=== PATIENT | female | born 1990 | race Caucasian/White ===

== ENCOUNTER 2019-01-07 00:58 | Outpatient (CLI) | payer MEDICAID, SELFPAY ==
--- NOTE | 2019-01-07 12:54 | DI.US_ITS ---
SYMPTOMS/DIAGNOSIS: F/U THYROID NODULE, E04.1 THYROID ULTRASOUND: No prior comparison exams are available. There is a 5 mm circumscribed nodule in the mid to lower right lobe of the thyroid. There is a 6 mm smoothly marginated hypoechoic nodule to the right side of the isthmus. An additional circumscribed 8 x 4 x 4 mm nodule is seen at the lower pole of the left lobe of the thyroid. No suspicious nodules are identified. IMPRESSION: Small benign-appearing thyroid nodules.
[2019-01-07 14:05] LABS: HCT 43.7 % (36.0-46.0); HGB 14.5 g/dL (12.0-15.5); Mean Corp. HGB Concentration 33.2 g/dL (32.0-36.0); Mean Corpuscular Volume 90.3 fL (80-95); Mean Platelet Volume 9.9 fL (8.0-11.0); Platelet Count 290 x1000/uL (130-400); RBC 4.84 m/cumm (4.00-5.20); RBC Distribution Width 13.4 % (11.7-14.6); White Blood Cell Count 11.58 k/cumm (4.4-10.8)
[2019-01-07 14:49] LABS: ESR 13 MM/HR (0-20)
[2019-01-07 15:41] LABS: ALT 27 U/L (12-78); AST 18 U/L (15-37); Albumin 4.2 g/dL (3.4-5.0); Alkaline Phosphatase 56 U/L (46-116); Anion Gap 8.7 mmol/L (3-11); BUN 16 mg/dL (7-18); Bilirubin, Total 0.1 mg/dL (0.2-1.0); C-Reactive Protein 0.14 mg/dL (0.0-0.3); CO2 28.3 mmol/L (21.0-32.0); CREATININE 0.68 mg/dL (0.55-1.02); Calcium 9.5 mg/dL (8.5-10.1); Chloride 102 mmol/L (98-107); Glucose 82 mg/dL (70-100); Potassium 4.3 mmol/L (3.5-5.1); Sodium 139 mmol/L (136-145); TSH (W/Ref FT4) 2.15 uIU/mL (0.358-3.74); Total Protein 7.6 g/dL (6.4-8.2)
[2019-01-08 11:13] LABS: Lyme Ab w Rflx to Lyme Confirm Negative
[2019-01-08 15:06] LABS: ANA Interpretation Negative (NEGAT)
[2019-01-09 10:36] LABS: Rheumatoid Factor 11 IU/mL (<12.5)
== END 2019-01-07 01:18 ==
PROVIDERS: PCP Nurse Practitioner; Visit Provider Nurse Practitioner
DX: E04.1 Nontoxic single thyroid nodule (principal); R53.83 Other fatigue; T14.8XXA Other injury of unspecified body region, initial encounter; W57.XXXA Bitten or stung by nonvenomous insect and other nonvenomous arthropods, initial encounter; F41.9 Anxiety disorder, unspecified; G43.909 Migraine, unspecified, not intractable, without status migrainosus; Z72.0 Tobacco use
CPT/HCPCS: 36415; 80053; 85027; 85652; 76536; 84443; 86038; 86140; 86431; 86618

== ENCOUNTER 2019-03-31 15:33 | Outpatient (CLI) | payer MEDICAID, SELFPAY ==
--- NOTE | 2019-03-31 12:50 | DI.RAD_ITS ---
SYMPTOMS/DIAGNOSIS: ANTERIOR CHEST PAIN, TOBACCO USE, PALPITATIONS, Z72.0, R07.9, R00.2 CHEST X-RAY, PA AND LATERAL: No priors. The heart is normal in size. The lungs are clear. The mediastinal structures and pleura appear intact. IMPRESSION: Normal chest.
== END 2019-03-31 15:53 ==
PROVIDERS: PCP Nurse Practitioner; Visit Provider Nurse Practitioner
DX: R07.9 Chest pain, unspecified (principal); R00.2 Palpitations; Z72.0 Tobacco use
CPT/HCPCS: 71046

== ENCOUNTER 2021-01-02 04:31 | Outpatient (CLI) | payer MEDICAID, SELFPAY ==
[2021-01-02 13:52] LABS: ESR 13 mm/hr (0-20)
[2021-01-02 14:42] LABS: Vitamin D 25 Total 26.4 ng/ml (30-100)
[2021-01-02 14:50] LABS: C-Reactive Protein 0.07 mg/dL (0.0-0.3); TSH (W/Ref FT4) 1.93 uIU/mL (0.36-3.74); Vitamin B12 738 pg/mL (193-986)
[2021-01-02 15:06] LABS: Creatine Kinase 87 U/L (26-192)
[2021-01-02 22:39] LABS: Rheumatoid Factor <8.6 IU/mL (<12.0)
[2021-01-03 15:31] LABS: ANA Interpretation Negative (Negative)
== END 2021-01-02 04:51 ==
PROVIDERS: PCP Nurse Practitioner; Visit Provider Nurse Practitioner Adult Health
DX: R53.83 Other fatigue (principal); R20.2 Paresthesia of skin; M79.18 Myalgia, other site; M25.59 Pain in other specified joint
CPT/HCPCS: 36415; 82306; 82550; 85652; 82607; 84443; 86038; 86140; 86431

== ENCOUNTER 2021-02-22 02:41 | Outpatient (CLI) | payer MEDICAID, SELFPAY ==
--- NOTE | 2021-02-22 | DI.MRI_ITS ---
EXAM: MR ANGIO BRAIN WO CLINICAL HISTORY: PULSATILE TINNITUS,H93.A9 TECHNIQUE: Brain MRA performed with [id number] technique. Field of view is from the skull base up to above the level of the [id number].. COMPARISON: Brain MRI performed today was reviewed FINDINGS: CEREBRAL PARENCHYMA: See separate MRI dictation. However, please note that there is cerebellar tonsi llar ectopia consistent with element of carry 1 malformation. MRI of the cervical spine is recommend ed to determine if there is abnormal finding in the cervical cord. ANTERIOR CIRCULATION: Both internal carotid arteries are shown to be patent the skull base-carotid canals as well as within the cavernous sinuses. Supraclinoid aspects of the internal carotid arteries are patent and nonaneu rysmal. Both middle cerebral arteries are patent demonstrated to be patent out to the sylvian fissur e branches. There no aneurysms in these vessels. Both A1 segments are patent as are the anterior ce rebral arteries. There is no obvious aneurysm at the level of the anterior communicating artery. POSTERIOR CIRCULATION: At the skull base the basilar artery is formed by the dominant right vertebral artery. The left vertebral artery terminates as the left posterior inferior cerebellar artery. The basilar artery is sends in the midline with normal luminal diameter and no intraluminal thrombus. D istally it gives off both superior cerebellar arteries and above this level terminates as patent bila teral posterior cerebral arteries. There is a very thin posterior communicating artery evident on th e right side of the [id number]-[id number]. Slightly thicker caliber posterior communicating artery seen o n the left side of the vseqgi-wb-[id number]. There is no evidence of aneurysm at the tip of the basilar artery. IMPRESSION: Patent intracranial arteries as described above. No intraluminal thrombus evident. No obvious aneurysms. Right vertebral artery is dominant. The left vertebral artery terminates as the left posterior infer ior cerebellar artery. DATA REPOSITORY:
--- NOTE | 2021-02-22 | DI.MRI_ITS ---
EXAM: MR IAC BRAIN WO/W CLINICAL HISTORY: PULSATILE TINNITIS, H93.A9 TECHNIQUE: Multiplanar multisequence MRI of the brain was performed. IAC sequences performed withou t and with IV contrast. Also performed high-resolution sub millimeters slice sequence the internal a uditory canals both noninfused and contrast infused sequences were performed. IV Contrast injected was 13 cc Dotarem. COMPARISON: No exams were available for comparison FINDINGS: CEREBRAL PARENCHYMA: No evidence of intracranial hemorrhage, mass effect nor shift of midline structu re. No extraaxial fluid collections. Ventricles are not enlarged nor shifted. There is no significant focal signal abnormality in the cerebellar hemispheres nor within the bryon, m idbrain, and thalami. There is no abnormal signal abnormality in the periventricular white matter. There are no demyelinat ion plaques evident in white matter. There is no abnormal signal on diffusion imaging. There is cerebellar tonsillar ectopia noted. INTERNAL AUDITORY CANALS: There are no masses in the cerebellopontine angles. No enhancing lesions a t this level nor within the internal auditory canals. Seventh and 8th nerves within the internal aud itory canals appear unremarkable. There are no ring enhancing lesions in the brain. There is no abnormal meningeal enhancement. PITUITARY GLAND: Visualized pituitary gland is not enlarged. No obvious abnormality of the cavernous sinuses. FLOW VOIDS: The expected flow void are noted. No evidence of obvious aneurysm nor obvious vascular ma lformation. PARANASAL SINUSES: There is mucosal thickening and bilateral retention cysts in both maxillary sinuse s. In addition, there is signal abnormality within right-sided mastoid air cells. ORBITS: No obvious abnormal findings. IMPRESSION: 1. No masses in the cerebellopontine angles. Also no evidence of intra canalicular acoustic neuroma- 1 Florencia. 2. No abnormal enhancing intracranial finding. No evidence of demyelinating plaques. 3. 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 As next step recommend cervical spine MRI to ensure that there is no abnormal signal nor syrinx withi n the cervical spinal cord. DATA REPOSITORY:
--- NOTE | 2021-02-22 | DI.MRI_ITS ---
EXAM: MR ANGIO NECK WO CLINICAL HISTORY: PULSATILE TINNITUS, H93.A9 TECHNIQUE: Noninfused MRA performed on 1.5 jesse unit with flight technique COMPARISON: FINDINGS: The aortic arch anatomy is conventional. There is no obvious tight stenosis at the origin of the gre at vessels off the aortic arch. Anterior circulation: Both common carotid arteries ascend with normal luminal diameters. There is no significant plaque-na rrowing at the level the carotid bulbs and proximal internal carotid arteries both internal carotid a rteries are non stenotic at their origins nor above this level in the neck. External carotid arterie s are patent. Both internal carotid arteries are demonstrated to be nicely patent in the upper neck as well as in the skull base-carotid canals. There is no evidence of aneurysm of the internal caroti d arteries in the skull base. Posterior circulation: Both vertebral arteries originate in conventional fashion off of the subclavian arteries. There is n o obvious tight subclavian stenosis proximal to the vertebral artery takeoff points. The right verte bral artery is dominant in the foramen transversarium where it exhibits a luminal diameter of 5 monica meters. No intraluminal thrombus nor dissection. The left vertebral artery is sends with luminal di ameter of 2.5 millimeters, also without evidence of intraluminal thrombus nor dissection. At the u ll base of the dominant right vertebral artery forms the basilar artery. The basilar artery ascends in the midline with normal luminal diameter. Distally it terminates as patent posterior cerebral art eries. The left vertebral artery terminates as the left posterior inferior cerebellar artery. IMPRESSION: Patent extracranial carotid and vertebral arteries in the neck. The right vertebral artery is domina nt and forms the basilar artery. The non dominant left vertebral artery terminates as the left poste rior inferior cerebral artery at the skull base. No aneurysms evident in the field of view of this study. No intraluminal thrombus. No dissection. DATA REPOSITORY:
[2021-02-22] MEDS: Normal Saline Flush 10 ML SYR IVP (14:51)
[2021-02-22] MEDS: Gadoterate meglumine 20 ML VIAL 13 ML IVP (14:52)
== END 2021-02-22 03:01 ==
PROVIDERS: PCP Nurse Practitioner; Visit Provider Otolaryngology Otolaryngology/Facial Plastic Surgery
DX: R94.02 Abnormal brain scan; H93.11 Tinnitus, right ear; H93.A1 Pulsatile tinnitus, right ear; H93.293 Other abnormal auditory perceptions, bilateral; M26.603 Bilateral temporomandibular joint disorder, unspecified
CPT/HCPCS: 70544; 70547; 70553

== ENCOUNTER 2021-04-10 02:29 | Outpatient (CLI) | payer MEDICAID, SELFPAY ==
--- NOTE | 2021-04-10 16:00 | DI.MRI_ITS ---
Exam(s) MR CERVICAL SPINE WO EXAM: MR CERVICAL SPINE WO CLINICAL HISTORY: CHIARI MALFORMATION,G93.5,HEADACHE,R51.9,CHRONIC PAIN,G89.29 TECHNIQUE: Multiplanar multisequence MRI of the cervical spine was performed without intravenous con trast. COMPARISON: MR MR ANGIO BRAIN WO from 02/22/2021 FINDINGS: CERVICOMEDULLARY JUNCTION: There is indeed cerebellar tonsillar ectopia, consistent with Chiari 1 mal formation, as described on the recent brain MRI study. There is, however, no evidence of focal swell ing nor atrophy nor syrinx within the cervical spinal cord OSSEOUS:There are no cervical fractures evident. No significant osseous lesions in the cervical vert ebrae. Cervical curvature is maintained. INDIVIDUAL LEVELS: C2-3: No disc herniation nor central canal stenosis. No foraminal stenosis. No facet arthropathy. C3-4: No disc herniation nor central canal stenosis.No facet arthropathy. No foraminal stenosis. C4-5: No disc herniation nor central canal stenosis.No facet arthropathy. No foraminal stenosis C5-6: Normal disc height and signal. No disc herniation or canal stenosis. No foraminal stenosis. No facet arthropathy. C6-7: Normal disc height and signal. No disc herniation or canal stenosis. No foraminal stenosis. No facet arthropathy. C7-T1: No disc herniation nor central canal stenosis. No facet arthropathy.No foraminal stenosis. IMPRESSION: 1. There is cerebellar tonsillar ectopia, consistent with Chiari 1 malformation. However, there is n o abnormal finding in the cervical spinal cord. 2. No evidence of cervical disc disease, spinal canal stenosis, nor foraminal stenosis in the cervica l spinal column. 3. No abnormal straightening nor reversal of the cervical curvature. DATA REPOSITORY:
== END 2021-04-10 02:49 ==
PROVIDERS: PCP Nurse Practitioner; Visit Provider Physician Assistant
DX: G93.5 Compression of brain (principal); R51.9 Headache, unspecified; G89.29 Other chronic pain
CPT/HCPCS: 72141

== ENCOUNTER 2021-04-13 01:27 | Outpatient (CLI) | payer MEDICAID, SELFPAY ==
--- NOTE | 2021-04-13 07:30 | DI.RAD_ITS ---
Exam(s) XR SACRUM EXAM: XR SACRUM CLINICAL HISTORY: LUMBAR AND SACRAL PAIN, M54.5,M53.3. TECHNIQUE: 2D digital imaging was performed. COMPARISON: No exams were available for comparison FINDINGS: No radiographic abnormality seen in the sacrum and sacroiliac joints. Visualized hips appear unremar kable. Bone density is normal. There is no evidence of sacralization of the L5 segment. IMPRESSION: DATA REPOSITORY: RADIATION DOSE DELIVERED:
--- NOTE | 2021-04-13 07:30 | DI.RAD_ITS ---
Exam(s) XR LUMBAR SPINE COMPLETE EXAM: XR LUMBAR SPINE COMPLETE CLINICAL HISTORY: LUMBAR AND SACRAL PAIN, M54.5,M53.3. TECHNIQUE: 2D digital imaging was performed. COMPARISON: No exams were available for comparison FINDINGS: No evidence of fracture nor listhesis. No obvious pars defects evident. No scoliosis. No disc spac e narrowing evident. Six no osseous lesions. Sacroiliac joints appear unremarkable cysts. Facet ricky ints appear unremarkable. No facet arthropathy. IMPRESSION: DATA REPOSITORY: RADIATION DOSE DELIVERED:
== END 2021-04-13 01:47 ==
PROVIDERS: PCP Nurse Practitioner; Visit Provider Nurse Practitioner
DX: M54.5 Low back pain (principal); M53.3 Sacrococcygeal disorders, not elsewhere classified
CPT/HCPCS: 72110; 72220

== ENCOUNTER 2021-05-29 12:15 | Outpatient (RCR) | payer MEDICAID, SELFPAY ==
--- NOTE | 2021-05-29 13:00 | HOLTER_ITS ---
APPROVED REPORT Conclusion This is a 48-hour monitor ordered for indication of dizziness. The patient was in normal sinus rhythm with majority recording with an average heart rate of 94 bpm. There were 0 episodes of ventricular tachycardia and 0 episodes of supraventricular tachycardia. There were rare PACs/PVCs. There were no episodes of atrial fibrillation, no pauses greater than 3 seconds and no evidence of hi gh degree heart block. There were 8 patient triggered events most of which were associated with chest pressure or dizziness. 2 of these episodes were associated with a single PVC and the rest with normal sinus rhythm
== END 2021-05-31 23:59 | disposition home or self-care (01) ==
LOC: RT 12:15
PROVIDERS: PCP Nurse Practitioner; Visit Provider Nurse Practitioner
DX: R42 Dizziness and giddiness (principal); R00.2 Palpitations; I49.3 Ventricular premature depolarization
CPT/HCPCS: 93225; 93226

== ENCOUNTER 2021-07-04 02:44 | Outpatient (CLI) | payer MEDICAID, SELFPAY ==
--- NOTE | 2021-07-04 08:45 | DI.US_ITS ---
Exam(s) US THYROID EXAM: US THYROID CLINICAL HISTORY: f/u thyroid nodule,e04.1 TECHNIQUE: Ultrasound performed using standard protocol. COMPARISON: US US thyroid from 01/07/2019 FINDINGS: Thyroid ultrasound was performed according to the usual protocol. Right thyroid lobe measures 54 x 20 x 19 millimeters, left lobe measures 50 x 16 x 14 millimeters. T he isthmus is about 5 millimeters in thickness. No abnormal lymph nodes are identified in the cervical region. There is a 5 millimeter in diameter right mid pole thyroid nodule, this is solid and hypoechoic, wide r than tall, and has ill-defined margins with punctate echogenic foci noted. This is a TR 5 nodule b y the TI-RADS classification, follow-up ultrasound recommended in 12 months. There is also a 7 millimeter in diameter right midpole Dari isthmus nodule, this is hypoechoic and so lid, wider than tall, and has ill-defined margins and contains punctate echogenic foci. This is also a TR 5 lesion by TI-RADS classification, follow-up ultrasound recommended in 12 months. No other significant findings. IMPRESSION: Two small nodules are identified in the right thyroid lobe which are TR 5 lesions by TI-RADS classifi cation. Follow-up ultrasound suggested in 12 months. DATA REPOSITORY:
--- NOTE | 2021-07-04 13:50 | DI.US_ITS ---
APPROVED REPORT EXAM: Comprehensive 2D, Doppler, and color-flow Echocardiogram Patient Location: Out-Patient Securities Broker: Millie Guillory RDCS (AE) Indications: Palpitations, Lightheadedness, Dizziness Other Information Study Quality: Good Conclusion Left Ventricle : The left ventricle is normal size. The left ventricular ejection fraction is within the normal range. There is normal left ventricular wall thickness. There is normal LV segmental wall motion. The left ventricular diastolic function is normal. LVEF is 65%. Right Ventricle : The right ventricle is normal size. The right ventricular systolic function is norm al. The RVSP is 23 mmHg. Atria : The left atrium size is normal. The right atrium size is normal. Aortic Valve : The aortic valve is normal in structure. Aortic valve is trileaflet. Mild aortic regur gitation. There is no aortic valvular stenosis. Great Vessels : The aortic root is normal in size. The ascending aorta is normal in size. Aortic arch is normal in caliber. IVC is normal in size and collapses >50% with inspiration. Please see remainder of findings for further details. Wall motion Left Ventricle The left ventricle is normal size. The left ventricular ejection fraction is within the normal range. There is normal left ventricular wall thickness. There is normal LV segmental wall motion. The left ventricular diastolic function is normal. There is no ventricular septal defect visualized. LVEF is 6 5%. Right Ventricle The right ventricle is normal size. The right ventricular systolic function is normal. The RVSP is 23 .3 mmHg. Atria The left atrium size is normal. The right atrium size is normal. The interatrial septum is intact wit h no evidence for an atrial septal defect. Aortic Valve The aortic valve is normal in structure. Aortic valve is trileaflet. There is no aortic valvular sten osis. Mild aortic regurgitation. Mitral Valve The mitral valve is normal in structure. No evidence of mitral valve stenosis. Trace mitral regurgita tion. Tricuspid Valve The tricuspid valve is normal in structure. There is no tricuspid valve stenosis. Trace tricuspid reg urgitation. Pulmonic Valve The pulmonary valve is normal in structure. There is no pulmonic valvular stenosis. There is no pulmo mary valvular regurgitation. Great Vessels The aortic root is normal in size. The ascending aorta is normal in size. Aortic arch is normal in ca liber. IVC is normal in size and collapses >50% with inspiration. Pericardium There is no pericardial effusion. 2D Dimensions IVSD d PLAX 0.78 cm F: 0.6-1.0 LV Vol A2C d MOD 86.4 mL LVPW d PLAX 0.77 cm F: 0.6 - 1.0 LV Vol A4C d MOD 88.1 mL LVID d PLAX 4.52 cm F: 3.8 - 5.2 LA vol/ BSA A2C s A-L 19.6 mL/m2 LVDs 2.95 cm F: 2.2 - 3.5 LA vol/ BSA A4C s A-L 15.6 mL/m2 Ao Root d 2.37 cm F: 2.7 - 3.3 LA Vol/ BSA Biplane s A-L 18.5 mL/m2 RA Area A4C 6.86 cm2 LA Area A4C s MOD 12.24 cm2 RA Vol/ BSA A4C s A-L 7.5 mL/m2 LA Area A2C s MOD 12.93 cm2 Ao Asc Diam d 3.26 cm F: 2.3 - 3.1 LV EF A4C MOD 66.5 % LV EF Teichholz 62.9 % LV EF A2C MOD 65.9 % LVEF (Black's) 66.45 % F: 54 - 74 LV EF Biplane MOD 66.4 % LV Volume 70.36 mL F: 46 - 106 SV 59.35 mL LV Volume Index 40.67 mL/m2 F: 29 - 61 SV Index 34.16 mL/m2 LV Vol Biplane MOD 89.3 mL FS 33.85 % M-Mode TAPSE 2.35 cm (M/F) >1.7 LV Diastology MV E' medial 0.122 (>0.07 m/s) E/A Ratio 1.3 LV E/e MED 7.05 (<14) MV E Vmax 0.86 (0.4-1.3 m/s) MV E' lateral 0.160 (>0.1 m/s) MV A Vmax 0.65 (0.4-1.3 m/s) LV E/e LAT 5.35 (<14) MV E/A Ratio 1.32 MV E/E' medial 7.06 MV E/E' lateral 5.39 Aortic Valve LVOT Area 2.97 cm2 AoV Area Vmax 2.25 cm2 LVOT Vmax 1.00 m/s AoV Area/ BSA (Vmax) 1.30 cm2/m2 LVOT Mean Volodymyr. 0.68 m/s DANIELLE Mean Volodymyr. 2.15 cm2 LVOT Peak Grad 4.0 mmHg DANIELLE Mean Volodymyr. Index 1.24 cm2/m2 LVOT Mean Grad 2.1 mmHg AR DT 1644 msec LVOT VTI 0.208 m AR PHT 477 msec LVOT Diam s 1.90 cm AoV Vmax 1.32 m/s Velocity Ratio 0.75 AoV Mean Volodymyr. 0.94 m/s AoV Peak Grad 7.0 mmHg LVOT SV 61.90 mL AoV Mean Grad 3.8 mmHg AoV VTI 0.260 m AoV Area VTI 2.38 cm2 AoV Area/ BSA (VTI) 1.37 cm/m2 Mitral Valve MV DT 166 (160-240 msec) MV PHT 48 msec MV Area PHT 4.58 cm2 MV VTI 0.261 m MV Area VTI 2.38 (4.0-6.0 cm2) Pulmonary Valve PV Vmax 0.84 (0.5-1.5 m/s) RVOT Peak Gr. 1.67 mmHg PV Peak Grad 2.8 mmHg RVOT Mean Gr. 0.80 mmHg PV Mean Grad 1.7 mmHg RVOT VTI 0.137 m PV VTI 0.176 m RVOT Vmax 0.65 m/s Tricuspid Valve TR Peak Grad 20.3 mmHg TR Vmax 2.26 m/s RA Pressure 3.00 mmHg RVSP (TR) 23.3 mmHg
== END 2021-07-04 03:04 ==
PROVIDERS: PCP Nurse Practitioner; Visit Provider Nurse Practitioner
DX: E04.1 Nontoxic single thyroid nodule (principal); R00.2 Palpitations; R42 Dizziness and giddiness; I35.1 Nonrheumatic aortic (valve) insufficiency
CPT/HCPCS: 76536; 93306

== ENCOUNTER 2022-01-16 13:09 | Outpatient (REF) | payer MEDICAID, SELFPAY ==
--- NOTE | 2022-01-16 11:45 | PAPFT_PTH ---
PATIENT: Jillian Scales LOC: [facility]#:[id number] AGE/SX: 31/F ROOM: RE01/16/[address]: Caroline Gomez NP : 1990 BED: DIS: 01/16/2022 SPEC #: [id number] RECD: 01/16/22 16:23 STATUS: RITIKA REArturo #: [id number] NAKIA: 01/16/22 11:[address]: Caroline Gomez NP DEPT: PENDING SALE TO [facility] Cytology RECD BY: Mary Chan ENTERED: 01/16/22 16:23 SP TYPE: PAPFT OTHR DR: Isbael Reza APRN Tissues: 1 - CX/ENDOCX FOR PAP SMEARS Procedures: PAP THIN PREP/[facility] Screening HPV DNA PROBE Comments: [id number] (CHLAMYDIA/GC)
[2022-01-17 15:34] LABS: Chlamydia Result Negative (Negative); GC Result Negative (Negative)
== END 2022-01-16 13:10 | disposition home or self-care (01) ==
LOC: LBN 13:09
PROVIDERS: PCP Nurse Practitioner; Visit Provider Nurse Practitioner Women's Health
DX: Z12.4 Encounter for screening for malignant neoplasm of cervix (principal); Z11.51 Encounter for screening for human papillomavirus (HPV)
CPT/HCPCS: 87491; 87591; 88142; 87624

== ENCOUNTER 2022-02-14 01:55 | Outpatient (CLI) | payer MEDICAID, SELFPAY ==
--- NOTE | 2022-02-14 06:30 | DI.US_ITS ---
Exam(s) US PELVIS TRANSVAGINAL EXAM: US PELVIS TRANSVAGINAL CLINICAL HISTORY: Heavy menstrual bleeding. R sided pain,R10.2,N92.0 TECHNIQUE: Ultrasound of the pelvis was performed transabdominally, apparently as per request the alexandria cuellar. COMPARISON: None FINDINGS: UTERUS: Anteverted and nongravid, measuring Measures 8.4 cm length x 0.7 cm AP x 5.5 cm wide. There is a fibroid in the anterior slightly right of center myometrium at the level the fundus measur ing 2.5 x 1.8 x 1.6 cm. Endometrial thickness measures 4.5 mm. There is no fluid in the endometrial canal. CERVIX: There are no obvious nabothian cysts. RIGHT OVARY: Measures 1.3 x 0.8 x 2.3 cm No significant cysts nor masses evident in the right ovary. LEFT OVARY: Measures 2.6 x 2.3 x 1.4 cm Multiple follicles are noted in the left ovary, these measuring less than 2 cm. CUL-DE-SAC: No free fluid evident. IMPRESSION: 1. There is a 2.5 x 1.8 x 1.6 cm anterior myometrial fibroid at the level fundus, slightly right of c enter 2. Normal thickness endometrium. No fluid in the endometrial canal. 3. Multiple follicular cysts are noted in the left ovary. These measure up to 2 cm size. There are no extraovarian adnexal masses and there is no free fluid in the pelvis. DATA REPOSITORY:
== END 2022-02-14 02:15 ==
PROVIDERS: PCP Nurse Practitioner; Visit Provider Nurse Practitioner Women's Health
DX: N92.0 Excessive and frequent menstruation with regular cycle (principal); R10.2 Pelvic and perineal pain; N83.02 Follicular cyst of left ovary; D25.9 Leiomyoma of uterus, unspecified
CPT/HCPCS: 76830; 76856

== ENCOUNTER 2022-03-28 04:40 | Outpatient (CLI) | payer MEDICAID, SELFPAY ==
[2022-03-28 15:08] LABS: Prothrombin Time 10.2 sec (9.3-11.0)
[2022-03-30 15:23] LABS: Antimullerian Hormone 4.1 ng/mL (0.58-8.1)
[2022-04-02 10:28] LABS: Testosterone, Free 0.23 ng/dL (0.06-1.03); Testosterone, Total 19 ng/dL (8-60)
== END 2022-03-28 04:41 | disposition home or self-care (01) ==
LOC: LBO 04:40
PROVIDERS: PCP Nurse Practitioner; Visit Provider Obstetrics & Gynecology
DX: R23.2 Flushing (principal); R23.3 Spontaneous ecchymoses; L68.8 Other hypertrichosis
CPT/HCPCS: 36415; 84402; 84403; 83001; 83520; 85610

== ENCOUNTER 2022-04-13 08:24 | Outpatient (CLI) | payer MEDICAID, SELFPAY ==
--- NOTE | 2022-04-13 08:15 | RT.EKG_ITS ---
APPROVED REPORT Exam: Resting ECG Reason for Exam: CP Patient Location: O HR:101 bpm ECG Measurements Heart Rate 101 AXIS VA 138 P 59 QRSd 89 QRS 34 QT 348 T 3 QTc 452 Conclusion Sinus rhythm Poor R wave progression Low voltage
== END 2022-04-13 08:25 | disposition home or self-care (01) ==
LOC: DI.CARD 08:26
PROVIDERS: PCP Nurse Practitioner; Visit Provider Internal Medicine Cardiovascular Disease
DX: R00.2 Palpitations (principal)
CPT/HCPCS: 93010

== ENCOUNTER → 2022-07-12 01:05 | Outpatient (CLI) | payer MEDICAID, SELFPAY ==
--- NOTE | 2022-07-12 | DI.US_ITS ---
Exam(s) US PELVIS TRANSVAGINAL EXAM: US PELVIS TRANSVAGINAL CLINICAL HISTORY: L sided pelvic pain,r10.2 TECHNIQUE: Ultrasound of the pelvis was performed both transabdominal and transvaginal. COMPARISON: US US PELVIS TRANSVAGINAL from 02/14/2022 FINDINGS: UTERUS: Nongravid anteverted. Measures 8 cm length x 4 cm AP x 6 cm wide. There are no uterine fibroids.Small 3 millimeter hyperechoic focus-probable calcific density is seen in the posterior myometrium Endometrial thickness measures 4 mm. There is a sliver of fluid in the endometrial canal at the fundus level. CERVIX: There are no obvious nabothian cysts. RIGHT OVARY: Measures 4 x 4 x 3 cm Contains multiple sub cm follicular cysts. LEFT OVARY: Measures 2.3 x 1.6 x 2.2 cm Contains multiple follicles ranging up to 1 cm size. CUL-DE-SAC: No free fluid evident. IMPRESSION: 1. There is a sliver of fluid in the endometrial canal. Endometrial stripe thickness is 4 millimeter s. 2. No abnormal ovarian findings. 3. No free fluid evident in the adnexal regions and cul-de-sac. DATA REPOSITORY:
== END ==
PROVIDERS: PCP Nurse Practitioner; Visit Provider Nurse Practitioner Women's Health
DX: N83.01 Follicular cyst of right ovary (principal); N83.02 Follicular cyst of left ovary
CPT/HCPCS: 76830; 76856

== ENCOUNTER 2022-09-18 03:43 | Outpatient (CLI) | payer MEDICAID, SELFPAY ==
[2022-09-18 11:16] LABS: Calculated LDL 141 mg/dL (<100); Cholesterol 216 mg/dL (<200); HDL Cholesterol 66 mg/dL (40-60); Triglyceride 47 mg/dL (<150)
[2022-09-19 10:06] LABS: Hepatitis C Ab w Rflx HCV PCR Negative (Negative)
== END 2022-09-18 03:44 | disposition home or self-care (01) ==
LOC: LBO 03:43
PROVIDERS: PCP Nurse Practitioner; Visit Provider Nurse Practitioner
DX: Z13.220 Encounter for screening for lipoid disorders (principal); Z11.59 Encounter for screening for other viral diseases
CPT/HCPCS: 36415; 80061; 86803

== ENCOUNTER 2023-03-11 16:00 | Outpatient (REF) | payer MEDICAID, SELFPAY ==
[2023-03-11 16:49] LABS: Bacteria Negative HPF (Negative); C & S Indicated? No; Casts Negative LPF (Negative); Crystals Negative HPF (Negative); Epithelial Cells Few HPF (Negative); Mucus Negative (Negative); Other Cells Negative (Negative); RBC 0-2 HPF (0-2); WBC 0-2 HPF (0-5)
== END 2023-03-11 16:01 | disposition home or self-care (01) ==
LOC: LBN 16:00
PROVIDERS: PCP Nurse Practitioner; Visit Provider Nurse Practitioner Women's Health
DX: R30.0 Dysuria (principal)
CPT/HCPCS: 81015

== ENCOUNTER 2024-09-23 03:35 | Outpatient (CLI) | payer MEDICAID, SELFPAY ==
[2024-09-23 11:11] LABS: Abs Immature Grans 0.04 10^3/uL (0.0-0.06); Absolute Eosinophil Count 0.84 10^3/uL (0.0-0.7); Absolute Monocyte Count 0.76 10^3/uL (0.1-0.8); Basophils % 0.8 %; Eosinophils % 6.9 %; HCT 41.8 % (36.0-46.0); HGB 14.1 g/dL (11.2-15.7); Immature Grans % 0.3 %; Lymphocytes % 27.8 %; MCH 30.6 pg (27.0-33.0); MCHC 33.7 % (32.0-36.0); MCV 91 fL (80-95); MPV 10.1 fL (8.0-11.0); Monocytes % 6.2 %; Platelet Count 278 10^3/uL (130-400); RBC 4.61 10^6/uL (3.93-5.22); RDW-SD 42.5 fL; WBC 12.22 10^3/uL (4.4-10.8)
[2024-09-23 11:13] LABS: Absolute Neutrophil Count 7.09 10^3/uL (1.2-6.7)
[2024-09-23 12:20] LABS: ALT 16 U/L (14-59); AST 17 U/L (15-37); Albumin 3.9 g/dL (3.4-5.0); Alkaline Phosphatase 78 U/L (46-116); Anion Gap 12.4 mmol/L (3-11); BUN 13 mg/dL (7-18); Bilirubin, Total 0.37 mg/dL (0.2-1.0); CO2 21.6 mmol/L (21.0-32.0); CREATININE 0.8 mg/dL (0.55-1.02); Calcium 9.2 mg/dL (8.5-10.1); Chloride 106 mmol/L (98-107); Estimated GFR 97.87 (mL/min/1.73m2); Glucose 106 mg/dL (74-106); Potassium 3.7 mmol/L (3.5-5.1); Sodium 140 mmol/L (136-145); TSH (W/Ref FT4) 1.13 uIU/mL (0.36-3.74); Total Protein 7.5 g/dL (6.4-8.2)
== END 2024-09-23 03:36 | disposition home or self-care (01) ==
LOC: LBO 03:35
PROVIDERS: PCP Nurse Practitioner; Visit Provider Nurse Practitioner
DX: R42 Dizziness and giddiness (principal); J45.909 Unspecified asthma, uncomplicated
CPT/HCPCS: 36415; 80053; 84443; 85025

== ENCOUNTER 2025-06-03 09:46 | Outpatient (REF) | payer MEDICAID, SELFPAY | END 2025-06-03 09:47 | disposition home or self-care (01) | LOC: LBN 09:46 | PROVIDERS: PCP Nurse Practitioner Family; Visit Provider Obstetrics & Gynecology | DX: N89.8 Other specified noninflammatory disorders of vagina (principal) | CPT/HCPCS: 87480; 87510; 87660 ==

== ENCOUNTER 2025-06-11 13:23 | Outpatient (REF) | payer MEDICAID, SELFPAY ==
[2025-06-14 13:29] LABS: Chlamydia Result Negative (Negative); GC Result Negative (Negative)
== END 2025-06-11 13:24 | disposition home or self-care (01) ==
LOC: LBN 13:23
PROVIDERS: PCP Nurse Practitioner Family; Visit Provider Obstetrics & Gynecology
DX: N89.8 Other specified noninflammatory disorders of vagina (principal)
CPT/HCPCS: 87491; 87591; 87480; 87510; 87660

== ENCOUNTER 2025-06-23 11:13 | Outpatient (CLI) | payer MEDICAID, SELFPAY ==
[2025-06-23 11:14] LABS: Hemoglobin A1C 5.7 % (<5.7)
[2025-06-23 11:34] LABS: TSH (W/Ref FT4) 1.21 uIU/mL (0.36-3.74)
[2025-06-23 18:29] LABS: FSH 7.4 mIU/mL (See Note)
== END 2025-06-23 11:14 | disposition home or self-care (01) ==
LOC: LBO 11:15
PROVIDERS: PCP Nurse Practitioner Family; Visit Provider Nurse Practitioner Women's Health
DX: R23.2 Flushing (principal); Z13.1 Encounter for screening for diabetes mellitus
CPT/HCPCS: 36415; 83001; 83036; 84443

== ENCOUNTER 2025-08-20 10:56 | Outpatient (REF) | payer MEDICAID, SELFPAY ==
[2025-08-20 17:04] LABS: C & S Indicated? No; RBC 0-2 HPF (0-2); WBC 0-2 HPF (0-5)
== END 2025-08-20 10:57 | disposition home or self-care (01) ==
LOC: LBN 10:56
PROVIDERS: PCP Nurse Practitioner Family; Visit Provider Nurse Practitioner Family
DX: R31.29 Other microscopic hematuria (principal)
CPT/HCPCS: 81015

== ENCOUNTER 2025-11-03 01:33 | Outpatient (CLI) | payer MEDICAID, SELFPAY ==
[2025-11-03 12:51] LABS: Abs Immature Grans 0.02 10^3/uL (0.0-0.06); HCT 40.6 % (36.0-46.0); HGB 13.6 g/dL (11.2-15.7); Immature Grans % 0.2 %; MCH 29.4 pg (27.0-33.0); MCHC 33.5 % (32.0-36.0); MCV 88 fL (80-95); MPV 9.9 fL (8.0-11.0); Platelet Count 297 10^3/uL (130-400); RBC 4.63 10^6/uL (3.93-5.22); RDW 12.7 % (11.7-14.6); RDW-SD 40.7 fL; WBC 9.41 10^3/uL (4.4-10.8)
[2025-11-03 14:24] LABS: ALT 16 U/L (10-49); AST 19 U/L (<34); Albumin 4.3 g/dL (3.2-5.0); Alkaline Phosphatase 63 U/L (46-116); Anion Gap 9.2 mmol/L (3-11); BUN 12 mg/dL (9-23); Bilirubin, Total 0.50 mg/dL (0.2-1.2); CO2 25.8 mmol/L (20.0-31.0); Calcium 9.7 mg/dL (8.3-10.6); Chloride 106 mmol/L (98-107); Glucose 77 mg/dL (74-106); Potassium 3.5 mmol/L (3.5-5.1); Sodium 141 mmol/L (136-145); Total Protein 7.1 g/dL (5.7-8.2)
[2025-11-03 14:26] LABS: TSH (W/Ref FT4) 1.41 uIU/mL (0.55-4.78)
[2025-11-03 23:54] LABS: HIV-1/2 Ag & Ab Screen Negative (Negative)
[2025-11-10 21:31] LABS: Testosterone, Free 2.6 pg/mL (0.1-6.4)
== END 2025-11-03 01:34 | disposition home or self-care (01) ==
LOC: LBO 01:33
PROVIDERS: Nurse Practitioner Women's Health; PCP Nurse Practitioner Family; Referring Provider Nurse Practitioner Family; Visit Provider Nurse Practitioner Family
DX: R61 Generalized hyperhidrosis (principal); R23.8 Other skin changes; L67.8 Other hair color and hair shaft abnormalities
CPT/HCPCS: 36415; 80053; 84402; 84403; 87389; 84443; 85025

== ENCOUNTER → 2025-11-05 00:19 | Outpatient (CLI) | payer MEDICAID, SELFPAY ==
--- NOTE | 2025-11-05 06:30 | DI.US_ITS ---
Exam(s) US PELVIS TRANSVAGINAL EXAM: US PELVIS TRANSVAGINAL CLINICAL HISTORY: L sided pelvic pain, IUD in place, ABNL UTERINE BLEEDING,R10.20,Z30.431 TECHNIQUE: Ultrasound of the pelvis was performed both transabdominal and transvaginal. COMPARISON: US US PELVIS TRANSVAGINAL from 07/12/2022 FINDINGS: UTERUS: Nongravid and anteverted Measures 6.8 cm length x 3.2 cm AP x 5.1 cm wide. There are no uterine fibroids. Endometrial thickness measures 4 mm. There is no obvious fluid in the endometrial canal. There is an IUD in the endometrial canal which is in satisfactory position. CERVIX: There are small nabothian cysts in the cervix. RIGHT OVARY: Measures 2.4 x 1.9 x 2.0 cm. Contains sub cm follicular cysts. No significant cysts nor masses evident in the right ovary. LEFT OVARY: Measures 2.7 x 1.9 x 5.7 cm. Contains sub cm follicular cysts. No significant cysts nor masses evident in the left ovary. CUL-DE-SAC: No free fluid evident. IMPRESSION: 1. There is an IUD which appears to be in satisfactory position in the endometrial canal. There is no fluid nor clots in the endometrial canal. Endometrial stripe thickness is 4 mm. No obvious uterine fibroids. 2. No abnormal ovarian findings. 3. No free fluid evident in the adnexal regions and cul-de-sac. DATA REPOSITORY:
== END ==
LOC: DI 00:19
PROVIDERS: PCP Nurse Practitioner Family; Visit Provider Nurse Practitioner Women's Health
DX: R10.22 Pelvic and perineal pain left side (principal); Z30.431 Encounter for routine checking of intrauterine contraceptive device
CPT/HCPCS: 76830; 76856

== ENCOUNTER → 2025-12-01 13:10 | Outpatient (CLI) | payer MEDICAID, SELFPAY ==
--- NOTE | 2025-12-01 13:00 | DI.US_ITS ---
Exam(s) US THYROID EXAM: US THYROID CLINICAL HISTORY: compare to older us, THYROID NODULE, E04.1. TECHNIQUE: Ultrasound thyroid performed using standard protocol. COMPARISON: US US thyroid from 01/07/2019 US US THYROID from 07/04/2021 FINDINGS: ISTHMUS: 3 mm. Right-sided nodule measuring 0.9 x 0.6 x 0.7 cm. Hypoechoic, ill-defined margins of echogenic foci, TR 5. RIGHT LOBE: Size: 4.9 x 1.8 x 2.3 cm Echogenicity: Normal. Vascularity: Normal. Nodules: 4 x 3 x 4 millimeters solid hypoechoic nodule in the mid pole with echogenic foci and smooth margins, TR 5. No change in size or appearance compared to the previous exams. LEFT LOBE: Size: 4.6 x 1.7 x 1.6 cm Echogenicity: Normal. Vascularity: Normal. Nodules: Lower pole nodule measuring 3 x 4 x 2 millimeters, solid, hypoechoic, wider than tall punctate echogenic foci, TR 5. No follow-up recommended due to small size. OTHER FINDINGS: None. IMPRESSION: Small bilateral thyroid nodules which appear unchanged from 2019. DATA REPOSITORY:
== END ==
LOC: DI 13:10
PROVIDERS: PCP Nurse Practitioner Family; Visit Provider Nurse Practitioner Family
DX: E04.1 Nontoxic single thyroid nodule (principal)
CPT/HCPCS: 76536